=== PATIENT | female | born 1985 | race African-American/Black ===

== ENCOUNTER 2017-07-01 18:14 | Emergency (ER) | payer OTHER ==
[~2017-07-01] VITALS: Ht 167.6 cm; Wt 93.7 kg
[~2017-07-01 18:14] MED LIST: IBUPROFEN800 MG PO; PRENATAL VITAM1 EAC1 PO
[2017-07-01] MEDS ORDERED: NAPROSYN500 MG PO (21:44)
[2017-07-01 22:51] VITALS: BP 123/74
== END 2017-07-01 22:51 | disposition home or self-care (01) ==
LOC: EME 18:14
DX: M25.532 Pain in left wrist (principal); R20.2 Paresthesia of skin; F17.200 Nicotine dependence, unspecified, uncomplicated
CPT/HCPCS: 73110; 93971; 99281; 99282